=== PATIENT | male | born 1965 | race Caucasian/White ===

== ENCOUNTER 2019-01-07 18:35 | Emergency (ER) | payer MEDICAID ==
[~2019-01-07] VITALS: Ht 185.4 cm; Wt 108.9 kg
[2019-01-07 19:34] VITALS: BP 145/80
[2019-01-07] MEDS ORDERED: PHENAZOPYRIDINE HCL 100 MG TAB PO ONE (19:45)
[2019-01-07] MEDS ORDERED: cefTRIAXone SOD 1,000 MG VL IM ONE (19:45)
[2019-01-07] MEDS ORDERED: AZITHROMYCIN 250 MG TAB PO ONE (20:00)
[2019-01-07] MEDS ORDERED: DexAMETHasone SOD PHOS 10MG/1ML VIAL INJ IM ONE (20:00)
== END 2019-01-07 20:12 | disposition home or self-care (01) ==
LOC: ER 18:42
DX: N39.0 Urinary tract infection, site not specified (principal)
CPT/HCPCS: 96372; 99283; J0696; J1100

== ENCOUNTER 2019-06-18 21:19 | Emergency (ER) | payer MEDICAID ==
[~2019-06-18] VITALS: Ht 185.4 cm; Wt 90.7 kg
[2019-06-18 22:44] LABS: Basophils # (auto) 0 10 ^3/uL (0-0.2); Eosinophils # (auto) 0.1 10 ^3/uL (0-0.8); Lymphocytes # (auto) 1.7 10 ^3/uL (0.4-5.4)
[2019-06-18 22:45] LABS: Basophils % (auto) 0.4 % (0.0-2.0); Eosinophils % (auto) 1.3 % (0.0-7.0); Hematocrit 48.8 % (41.0-53.0); Hemoglobin 15.6 g/dL (13.5-17.5); Mean Corpuscular Hemoglobin 23.1 pg (28.0-32.0); Mean Corpuscular Volume 72.1 fL (80.0-100.0); Monocytes # (auto) 0.6 10 ^3/uL (0-1.3); Monocytes % (auto) 10.4 % (0.0-12.0); Neutrophils # (auto) 3.6 10 ^3/uL (1.6-8.6); Neutrophils % (auto) 59.9 % (37.0-80.0); Nucleated Red Blood Cells % 0.2 %; Platelet Count (auto) 269 10^3/uL (140-450); Red Blood Cells 6.77 10^6/uL (4.5-5.90); Red Cell Distribution Width 15.2 % (11.8-14.3)
[2019-06-18 22:54] LABS: Alanine Aminotransferase 23 U/L (16-61); Albumin 3.8 g/dL (3.4-5.0); Anion Gap 7 (5-15); Aspartate Aminotransferase 31 U/L (15-37); BUN/Creatinine Ratio 4.3; Blood Alcohol < 3.0 mg/dL (0-5); Blood Urea Nitrogen 6 mg/dL (7-18); Calcium 8.9 mg/dL (8.5-10.1); Carbon Dioxide 21 mmol/L (21-32); Chloride 108 mmol/L (98-107); GFR African American 69 mL/min; GFR Non-African American 57 mL/min; Glucose 102 mg/dL (74-106); Potassium 3.8 mmol/L (3.5-5.1); Salicylate 4.3 mg/dL (2.8-20.0); Sodium 136 mmol/L (136-145)
[2019-06-18 22:57] LABS: Alkaline Phosphatase 107 U/L (45-117); Bilirubin, Total 0.5 mg/dL (0.2-1.0); Total Protein 7.7 g/dL (6.4-8.2)
[2019-06-18 23:04] LABS: Acetaminophen < 2.0 ug/mL (10-30)
[2019-06-18] MEDS ORDERED: LORazepam 2MG/ML-1ML VIAL IM ONE (23:15)
[2019-06-19 05:05] LABS: Urine Bacteria FEW /hpf (None Seen); Urine Blood Negative /uL (Negative); Urine Mucus FEW (None Seen); Urine Specific Gravity 1.014 (1.001-1.035); Urine WBC 22 /hpf (0 - 3)
[2019-06-19 05:12] LABS: Barbiturate Scree,Urine NEGATIVE (NEGATIVE); Benzodiazephine Screen, Urine NEGATIVE (NEGATIVE); Cannabinoid Screen, Urine NEGATIVE (NEGATIVE); Cocaine Screen, Urine NEGATIVE (NEGATIVE); Opiate Scree,Urine NEGATIVE (NEGATIVE); Phencyclidine Screen, Urine NEGATIVE (NEGATIVE)
[2019-06-19 05:20] LABS: Amphetamine Screen, Urine POSITIVE (NEGATIVE)
[2019-06-19] MEDS ORDERED: cefTRIAXone W LIDOCAINE 1 GM IM IM ONE ×3 (05:30→09:00)
[2019-06-19] MEDS ORDERED: OLANZapine 5 MG TAB PO ONE (07:30)
[2019-06-19] MEDS ORDERED: LIDOCAINE 1% HCL (LOCAL ANESTH.) INJ 20ML MDV ONE (09:00)
[2019-06-19] MEDS ORDERED: LORazepam 0.5 MG TAB PO ONE (10:30)
[2019-06-21 07:28] VITALS: BP 105/67
== END 2019-06-21 10:59 | disposition home or self-care (01) ==
LOC: ER 21:23
DX: F20.9 Schizophrenia, unspecified (principal); N39.0 Urinary tract infection, site not specified
CPT/HCPCS: 36415; 80053; 80307; 80320; 80329; 81001; 85025; 96372; 99284; J0696; J2001; J2060

== ENCOUNTER 2021-03-10 19:43 | Emergency (ER) | payer MEDICAID ==
[~2021-03-10] VITALS: Ht 185.4 cm; Wt 113.9 kg
[2021-03-10 22:06] LABS: Basophils # (auto) 0 10 ^3/uL (0-0.2); Eosinophils # (auto) 0.2 10 ^3/uL (0-0.8)
[2021-03-10 22:08] LABS: Basophils % (auto) 0.4 % (0.0-2.0); Eosinophils % (auto) 1.9 % (0.0-7.0); Hematocrit 46.6 % (41.0-53.0); Hemoglobin 14.7 g/dL (13.5-17.5); Lymphocytes # (auto) 2.6 10 ^3/uL (0.4-5.4); Lymphocytes % (auto) 30.9 % (10.0-50.0); Mean Corpuscular Hemoglobin 22.6 pg (28.0-32.0); Mean Corpuscular Hgb Conc. 31.7 g/dL (32.0-36.0); Mean Corpuscular Volume 71.2 fL (80.0-100.0); Monocytes # (auto) 0.7 10 ^3/uL (0-1.3); Monocytes % (auto) 8.1 % (0.0-12.0); Neutrophils % (auto) 58.7 % (37.0-80.0); Nucleated Red Blood Cells % 0.2 %; Red Blood Cells 6.54 10^6/uL (4.5-5.90); Red Cell Distribution Width 15.4 % (11.8-14.3); White Blood Cell 8.5 10^3/uL (4.4-10.8)
[2021-03-10 22:23] LABS: Albumin 4.1 g/dL (3.4-5.0); BUN/Creatinine Ratio 8.7; Calcium 8.5 mg/dL (8.5-10.1)
[2021-03-10 22:28] LABS: Bilirubin, Total 0.7 mg/dL (0.2-1.0)
[2021-03-11 04:30] VITALS: BP 152/101
== END 2021-03-11 04:40 | disposition home or self-care (01) ==
LOC: ER 19:44
DX: F20.0 Paranoid schizophrenia (principal); E66.9 Obesity, unspecified; R94.31 Abnormal electrocardiogram [ECG] [EKG]; F32.9 Major depressive disorder, single episode, unspecified; Z68.33 Body mass index [BMI] 33.0-33.9, adult; Z76.0 Encounter for issue of repeat prescription
CPT/HCPCS: 36415; 71045; 80053; 84484; 85025; 93005

== ENCOUNTER 2021-03-11 04:53 | Emergency (ER) | payer MEDICAID ==
[~2021-03-11] VITALS: Ht 185.4 cm; Wt 112.5 kg
[2021-03-11] MEDS ORDERED: SODIUM CHLORIDE 0.9% 1,000 ML IV ONE (07:30)
[2021-03-11] MEDS ORDERED: LORazepam 2MG/ML-1ML VIAL IV ONE (07:30)
[2021-03-11 10:36] LABS: Alcohol, Urine < 3.0 mg/dL (0-10); Amphetamine Screen, Urine POSITIVE (NEGATIVE); Benzodiazephine Screen, Urine NEGATIVE (NEGATIVE); Cannabinoid Screen, Urine NEGATIVE (NEGATIVE); Cocaine Screen, Urine NEGATIVE (NEGATIVE); Phencyclidine Screen, Urine NEGATIVE (NEGATIVE)
[2021-03-11 10:43] LABS: Barbiturate Scree,Urine NEGATIVE (NEGATIVE); Opiate Scree,Urine NEGATIVE (NEGATIVE)
[2021-03-11] MEDS ORDERED: ONDANSETRON HCL 4 MG/2 ML VIAL IV ONE (17:15)
[2021-03-12 02:04] VITALS: BP 136/76
== END 2021-03-12 10:47 | disposition home or self-care (01) ==
LOC: ER 04:53
DX: F20.9 Schizophrenia, unspecified (principal); Z76.0 Encounter for issue of repeat prescription; F32.9 Major depressive disorder, single episode, unspecified
CPT/HCPCS: 80307; 96361; 96374; 96375; 99284; J2060; J2405

== ENCOUNTER 2021-03-13 06:04 | Emergency (ER) | payer MEDICAID ==
[~2021-03-13] VITALS: Ht 185.4 cm; Wt 113.4 kg
[2021-03-13 08:08] VITALS: BP 122/75
[2021-03-13 10:08] LABS: Basophils # (auto) 0 10 ^3/uL (0-0.2); Eosinophils # (auto) 0.1 10 ^3/uL (0-0.8); Hemoglobin 13.6 g/dL (13.5-17.5); Nucleated Red Blood Cells % 0.1 %; White Blood Cell 4.8 10^3/uL (4.4-10.8)
[2021-03-13 10:09] LABS: Basophils % (auto) 0.8 % (0.0-2.0); Hematocrit 43.1 % (41.0-53.0); Lymphocytes # (auto) 1.7 10 ^3/uL (0.4-5.4); Lymphocytes % (auto) 34.6 % (10.0-50.0); Mean Corpuscular Hemoglobin 22.9 pg (28.0-32.0); Mean Corpuscular Hgb Conc. 31.7 g/dL (32.0-36.0); Mean Corpuscular Volume 72.3 fL (80.0-100.0); Monocytes # (auto) 0.4 10 ^3/uL (0-1.3); Monocytes % (auto) 8.2 % (0.0-12.0); Neutrophils # (auto) 2.6 10 ^3/uL (1.6-8.6); Neutrophils % (auto) 54.4 % (37.0-80.0); Red Blood Cells 5.95 10^6/uL (4.5-5.90); Red Cell Distribution Width 15.4 % (11.8-14.3)
[2021-03-13 10:28] LABS: Albumin 3.6 g/dL (3.4-5.0); Anion Gap 3 (5-15); Blood Alcohol < 3.0 mg/dL (0-5); Blood Urea Nitrogen 12 mg/dL (7-18); Calcium 8.3 mg/dL (8.5-10.1); Carbon Dioxide 27 mmol/L (21-32); Chloride 109 mmol/L (98-107); Glucose 109 mg/dL (74-106); Potassium 4.4 mmol/L (3.5-5.1); Sodium 139 mmol/L (136-145)
[2021-03-13 10:33] LABS: Alanine Aminotransferase 31 U/L (16-61); Alkaline Phosphatase 94 U/L (45-117); Aspartate Aminotransferase 22 U/L (15-37); BUN/Creatinine Ratio 8.8; Bilirubin, Total 0.4 mg/dL (0.2-1.0); GFR African American 70 mL/min; GFR Non-African American 58 mL/min; Total Protein 7.3 g/dL (6.4-8.2)
== END 2021-03-13 10:56 | disposition left against medical advice (07) ==
LOC: ER 06:04
DX: F20.9 Schizophrenia, unspecified (principal); I10 Essential (primary) hypertension; Z90.49 Acquired absence of other specified parts of digestive tract
CPT/HCPCS: 36415; 80053; 80320; 85025